=== PATIENT | male | born 1970 | race Caucasian/White ===

== ENCOUNTER 2016-07-29 14:23 | Emergency (ER) | payer OTHER ==
[~2016-07-29] VITALS: Ht 177.8 cm; Wt 106.0 kg
[~2016-07-29 14:23] MED LIST: ACCUPRIL20 MG OR; ACYCLOVIR400 MG PO; ACYCLOVIR800 MG OR; ADVIL200 MG PO; ALEVE220 MG PO; AMOX/K CLAV500 MG OR; ATENOLOL25 MG OR; ATENOLOL25 MG PO; CELEXA20 MG PO; CIPRO500 MG OR; COMBIVENT IN; DILAUDID4 MG OR; FLEXERIL10 MG PO; GLIPIZIDE ER5 MG OR; HYDROMORPHON2 MG OR; LEVAQUIN750 MG PO; LOPID600 MG PO; LORTAB 10 OR; LYRICA150 MG OR; MIRAPEX0.25 MG OR; NO HOME MEDS; NOVOLIN 701000 UNITS SC; NYSTATIN100000 M3 EX; PHENAZOPYRID200 MG PO; PREVACID30 M1 OR; QUINAPRIL10 MG PO; RESTORIL15 MG OR; SERTRALINE50 MG OR; TENORMIN25 MG PO; TRAZODONE150 MG OR; TYLENOL # 31 TAB OR; ULTRAM50 MG OR; ZOLPIDEM10 MG OR; ZOVIRAX800 MG PO
[2016-07-29] MEDS ORDERED: FUROSEMIDE40 MG PO (14:30)
[2016-07-29] MEDS ORDERED: LOSARTAN POT50 MG PO (14:31)
[2016-07-29] MEDS ORDERED: AMLODIPINE5 MG PO (15:31)
[2016-07-29 15:33] LABS: HEMATOCRIT 39.2 % (39.0-50.0); HEMOGLOBIN 12.7 g/dl (14.0-18.0); IMMATURE GRANULOCYTES 0.6 % (0.0-1.0); MEAN CELL VOLUME 87.5 fL CALC (80.0-100.0); MEAN CORPUSCULAR HGB 28.3 pG CALC (26.0-32.0); MEAN CORPUSCULAR HGB CONC 32.4 g/L CALC (32.0-36.0); NEUT# 15.54 thou/uL (1.82-7.42); RED BLOOD COUNT 4.48 mill/uL (4.70-6.10); RED CELL DISTRI WIDTH 15.7 % (11.5-15.5)
[2016-07-29 15:46] LABS: ALBUMIN 3.3 g/dL (3.2-5.0); ALKALINE PHOSPHATASE 175 u/l (38-126); ANION GAP 14 (6-22 (CALC)); BILIRUBIN, TOTAL 0.8 mg/dL (0.0-1.4); BUN 15 mg/dL (9-20); BUN/CREATININE RATIO 10 (12-20 (CALC)); CALCIUM 8.4 mg/dL (8.4-10.2); CARBON DIOXIDE 29 mmol/l (22-30); CHLORIDE 89 mmol/l (95-108); CREATININE 1.5 mg/dL (0.7-1.3); GFR 51 ML/MIN (>=60 (CALC)); GFR FOR AFR.AMER. > 60 ML/MIN (>=60 (CALC)); GLUCOSE 371 mg/dL (75-110); POTASSIUM 3.1 mmol/l (3.5-5.1); SGOT/AST 30 u/l (17-59); SGPT/ALT 25 u/l (21-72); SODIUM 129 mmol/l (137-146); TOTAL PROTEIN 7.2 g/dL (6.3-8.2)
[2016-07-29] MEDS ORDERED: AUGMENTIN500TAB PO (18:16)
[2016-07-29 18:26] VITALS: BP 122/75
[2016-07-30] MEDS ORDERED: BACTRIM DS1 TAB PO (21:31)
== END 2016-07-29 18:59 | disposition home or self-care (01) | DRG 603 ==
LOC: ED 14:23
PROVIDERS: Emergency Medicine
PROC: 0H91XZZ Drainage of Face Skin, External Approach (ICD-10-PCS; principal; 2016-07-29)
DX: L02.01 Cutaneous abscess of face (principal); B95.62 Methicillin resistant Staphylococcus aureus infection as the cause of diseases classified elsewhere

== ENCOUNTER 2016-07-30 20:50 | Emergency (ER) | payer OTHER ==
[~2016-07-30] VITALS: Ht 177.8 cm; Wt 106.0 kg
[~2016-07-30 20:50] MED LIST changes: +AMLODIPINE5 MG PO; +AUGMENTIN500TAB PO; +FUROSEMIDE40 MG PO; +LOSARTAN POT50 MG PO
[2016-07-30] MEDS ORDERED: BACTRIM DS1 TAB PO (21:31)
[2016-07-30 21:40] VITALS: BP 149/84
== END 2016-07-30 21:40 | disposition home or self-care (01) | DRG 951 ==
LOC: ED 20:50
DX: Z48.01 Encounter for change or removal of surgical wound dressing (principal); E11.40 Type 2 diabetes mellitus with diabetic neuropathy, unspecified; I10 Essential (primary) hypertension; J44.9 Chronic obstructive pulmonary disease, unspecified

== ENCOUNTER 2016-08-02 01:15 | Emergency (ER) | payer OTHER ==
[~2016-08-02] VITALS: Ht 177.8 cm; Wt 110.6 kg
[~2016-08-02 01:15] MED LIST changes: +BACTRIM DS1 TAB PO
[2016-08-02 02:18] VITALS: BP 145/103
== END 2016-08-02 02:26 | disposition home or self-care (01) | DRG 603 ==
LOC: ED 01:15
DX: L02.01 Cutaneous abscess of face (principal); E11.40 Type 2 diabetes mellitus with diabetic neuropathy, unspecified; I10 Essential (primary) hypertension; R10.9 Unspecified abdominal pain; G89.29 Other chronic pain; M54.9 Dorsalgia, unspecified; F32.9 Major depressive disorder, single episode, unspecified; J44.9 Chronic obstructive pulmonary disease, unspecified; B95.62 Methicillin resistant Staphylococcus aureus infection as the cause of diseases classified elsewhere

== ENCOUNTER 2017-06-05 15:58 | Emergency (ER) | payer OTHER ==
[~2017-06-05] VITALS: Ht 177.8 cm; Wt 118.0 kg
[2017-06-05 19:24] LABS: HEMATOCRIT 42.7 % (39.0-50.0); HEMOGLOBIN 14.5 g/dl (14.0-18.0); IMMATURE GRANULOCYTES 1.9 % (0.0-1.0); MEAN CORPUSCULAR HGB 31.3 pG CALC (26.0-32.0); NEUT# 12.63 thou/uL (1.82-7.42); RED BLOOD COUNT 4.64 mill/uL (4.70-6.10); RED CELL DISTRI WIDTH 14.1 % (11.5-15.5)
[2017-06-05 19:35] LABS: ALBUMIN 3.2 g/dL (3.2-5.0); BILIRUBIN, TOTAL 0.9 mg/dL (0.0-1.4); CREATININE 1.8 mg/dL (0.7-1.3); TOTAL PROTEIN 6.4 g/dL (6.3-8.2)
[2017-06-05 21:25] VITALS: BP 154/88
== END 2017-06-05 21:25 | disposition left against medical advice (07) | DRG 558 ==
LOC: ED 15:58
PROVIDERS: Emergency Medicine
DX: M65.842 Other synovitis and tenosynovitis, left hand (principal); R22.32 Localized swelling, mass and lump, left upper limb; R00.0 Tachycardia, unspecified; X58.XXXA Exposure to other specified factors, initial encounter; Y92.009 Unspecified place in unspecified non-institutional (private) residence as the place of occurrence of the external cause; Z91.19 Patient's noncompliance with other medical treatment and regimen

== ENCOUNTER 2019-04-22 | Inpatient (IN) | payer OTHER ==
[2019-04-19 16:26] LABS: HEMOGLOBIN 14.7 g/dl (14.0-18.0); IMMATURE GRANULOCYTES 0.3 % (0.0-5.0); MEAN CELL VOLUME 91.5 fL CALC (80.0-100.0); MEAN CORPUSCULAR HGB 29.2 pG CALC (26.0-32.0); NEUT# 7.13 thou/uL (1.82-7.42); RED BLOOD COUNT 5.03 mill/uL (4.70-6.10); RED CELL DISTRI WIDTH 16.4 % (11.5-15.5)
[2019-04-19 16:43] LABS: ALBUMIN 3.7 g/dL (3.2-5.0); BILIRUBIN, TOTAL 1.1 mg/dL (0.0-1.4); TOTAL PROTEIN 7.6 g/dL (6.3-8.2)
[2019-04-19 16:55] LABS: CREATININE 2.8 mg/dL (0.7-1.3); POTASSIUM 3.9 mmol/l (3.5-5.1)
[2019-04-19 19:25] VITALS: BP 174/108
[2019-04-19 20:45] VITALS: BP 140/92
[2019-04-19 23:40] VITALS: BP 164/103
[2019-04-20] VITALS (9 sets, daily range): BP systolic 119–163; BP diastolic 80–109
[2019-04-20 05:22] LABS: HEMATOCRIT 47.8 % (39.0-50.0); IMMATURE GRANULOCYTES 0.3 % (0.0-5.0); MEAN CELL VOLUME 92.6 fL CALC (80.0-100.0); MEAN CORPUSCULAR HGB 29.1 pG CALC (26.0-32.0); MEAN CORPUSCULAR HGB CONC 31.4 g/L CALC (32.0-36.0); NEUT# 5.02 thou/uL (1.82-7.42); RED BLOOD COUNT 5.16 mill/uL (4.70-6.10); RED CELL DISTRI WIDTH 16.3 % (11.5-15.5)
[2019-04-20 05:36] LABS: CREATININE 2.6 mg/dL (0.7-1.3)
[2019-04-20 21:19] LABS: URINE BLOOD DIPSTICK SMALL (NEGATIVE); URINE COLOR YELLOW; URINE GLUCOSE - DIPSTICK NEGATIVE (NEGATIVE); URINE KETONE NEGATIVE (NEGATIVE); URINE LEUK ESTERASE NEGATIVE (NEGATIVE); URINE NITRITE - DIPSTICK NEGATIVE (Negative); URINE PROTEIN - DIPSTICK >=300 mg/dL (NEG-TRACE); URINE SPECIFIC GRAVITY >=1.030; URINE UROBILINOGEN - DIPSTICK 0.2 E.U./dL (0.2)
[2019-04-20 21:24] LABS: URINE BILIRUBIN - DIPSTICK NEGATIVE (NEGATIVE)
[2019-04-20 21:26] LABS: URINE AMORPH SEDIMENT MANY hpf (NONE-FER); URINE RBC 0-2 RBC/hpf (0-5); URINE WBC 0-2 WBC/hpf (0-5)
[2019-04-21] VITALS (11 sets, daily range): BP systolic 119–165; BP diastolic 78–110
[2019-04-21 04:43] LABS: HEMATOCRIT 45.1 % (39.0-50.0); IMMATURE GRANULOCYTES 0.2 % (0.0-5.0); MEAN CELL VOLUME 93.6 fL CALC (80.0-100.0); NEUT# 6.31 thou/uL (1.82-7.42); RED BLOOD COUNT 4.82 mill/uL (4.70-6.10); RED CELL DISTRI WIDTH 16.4 % (11.5-15.5)
[2019-04-21 04:58] LABS: CREATININE 2.6 mg/dL (0.7-1.3); MAGNESIUM 1.7 mg/dL (1.6-2.3); POTASSIUM 3.9 mmol/l (3.5-5.1)
[2019-04-22] VITALS (15 sets, daily range): BP systolic 122–167; BP diastolic 82–115
[~2019-04-22] MED LIST changes: +AMLODIPINE BESY10 MG PO; -AMLODIPINE5 MG PO; +CLOTRIM/BET1 EX; +CONSTULOSE10 GM/15 M PO; +COZAAR25 MG PO; -FUROSEMIDE40 MG PO; +GABAPENTIN600 MG PO; +IPRATROPIU0.5 MG/3 M IN; +LASIX 80 MG TAB80 MG PO; -LOSARTAN POT50 MG PO; +ZOLPIDEM10 M1 PO
[2019-04-22 05:11] LABS: HEMATOCRIT 44.2 % (39.0-50.0); HEMOGLOBIN 13.7 g/dl (14.0-18.0); IMMATURE GRANULOCYTES 0.5 % (0.0-5.0); MEAN CELL VOLUME 93.4 fL CALC (80.0-100.0); NEUT# 10.77 thou/uL (1.82-7.42); RED BLOOD COUNT 4.73 mill/uL (4.70-6.10); RED CELL DISTRI WIDTH 16.3 % (11.5-15.5)
[2019-04-22 05:37] LABS: CREATININE 2.4 mg/dL (0.7-1.3); MAGNESIUM 1.6 mg/dL (1.6-2.3); POTASSIUM 3.7 mmol/l (3.5-5.1)
[2019-04-22 16:46] LABS: URINE BILIRUBIN - DIPSTICK NEGATIVE (NEGATIVE); URINE BLOOD DIPSTICK LARGE (NEGATIVE); URINE COLOR YELLOW; URINE GLUCOSE - DIPSTICK NEGATIVE (NEGATIVE); URINE KETONE NEGATIVE (NEGATIVE); URINE LEUK ESTERASE SMALL (Negative); URINE NITRITE - DIPSTICK POSITIVE (Negative); URINE PH 6.5 (4.5-8.0); URINE PROTEIN - DIPSTICK 100 mg/dL (NEG-TRACE); URINE SPECIFIC GRAVITY >=1.030
[2019-04-22 16:52] LABS: URINE CLARITY CLOUDY
[2019-04-22 17:03] LABS: URINE BACTERIA RARE hpf; URINE WBC 20-50 WBC/hpf (0-5)
[2019-04-22 19:05] LABS: COCAINE NEGATIVE (NEGATIVE); METHADONE NEGATIVE (NEGATIVE); TETRAHYDROCANNABIONOL NEGATIVE (NEGATIVE)
[2019-04-22 19:06] LABS: BARBITURATES NEGATIVE (NEGATIVE); OXCYCODONE NEGATIVE (NEGATIVE); TRICYLIC ANTIDEPRESSANTS NEGATIVE (NEGATIVE)
[2019-04-23] VITALS (17 sets, daily range): BP systolic 122–178; BP diastolic 75–99
[2019-04-23 05:16] LABS: HEMATOCRIT 41.4 % (39.0-50.0); MEAN CELL VOLUME 93.2 fL CALC (80.0-100.0); MEAN CORPUSCULAR HGB 29.3 pG CALC (26.0-32.0); MEAN CORPUSCULAR HGB CONC 31.4 g/L CALC (32.0-36.0); RED BLOOD COUNT 4.44 mill/uL (4.70-6.10); RED CELL DISTRI WIDTH 16.3 % (11.5-15.5)
[2019-04-23 05:35] LABS: CREATININE 2.5 mg/dL (0.7-1.3); MAGNESIUM 1.6 mg/dL (1.6-2.3); POTASSIUM 3.4 mmol/l (3.5-5.1)
[2019-04-24] VITALS (13 sets, daily range): BP systolic 99–198; BP diastolic 66–134
[2019-04-24 05:40] LABS: HEMATOCRIT 42.1 % (39.0-50.0); HEMOGLOBIN 12.9 g/dl (14.0-18.0); IMMATURE GRANULOCYTES 1.1 % (0.0-5.0); MEAN CORPUSCULAR HGB 28.8 pG CALC (26.0-32.0); MEAN CORPUSCULAR HGB CONC 30.6 g/L CALC (32.0-36.0); NEUT# 4.27 thou/uL (1.82-7.42); RED BLOOD COUNT 4.48 mill/uL (4.70-6.10); RED CELL DISTRI WIDTH 16.9 % (11.5-15.5)
[2019-04-24 05:45] LABS: ALBUMIN 3.5 g/dL (3.2-5.0); ALKALINE PHOSPHATASE 124 u/l (38-126); ANION GAP 16 (6-22 (CALC)); BILIRUBIN, TOTAL 1.2 mg/dL (0.0-1.4); BUN 50 mg/dL (9-20); BUN/CREATININE RATIO 19 (12-20 (CALC)); CARBON DIOXIDE 29 mmol/l (22-30); CHLORIDE 92 mmol/l (95-108); CREATININE 2.7 mg/dL (0.7-1.3); GFR 26 ML/MIN (>=60 (CALC)); GFR FOR AFR.AMER. 31 ML/MIN (>=60 (CALC)); POTASSIUM 3.5 mmol/l (3.5-5.1); SODIUM 133 mmol/l (137-146); TOTAL PROTEIN 6.8 g/dL (6.3-8.2)
[2019-04-24 05:49] LABS: SGOT/AST 178 u/l (17-59)
[2019-04-25] VITALS (9 sets, daily range): BP systolic 92–140; BP diastolic 52–84
[2019-04-25 05:23] LABS: HEMATOCRIT 43.5 % (39.0-50.0); HEMOGLOBIN 13.5 g/dl (14.0-18.0); MEAN CELL VOLUME 93.1 fL CALC (80.0-100.0); MEAN CORPUSCULAR HGB 28.9 pG CALC (26.0-32.0); RED BLOOD COUNT 4.67 mill/uL (4.70-6.10); RED CELL DISTRI WIDTH 16.4 % (11.5-15.5)
[2019-04-25 05:37] LABS: POTASSIUM 3.3 mmol/l (3.5-5.1)
== END 2019-04-25 20:25 | DRG 291 ==
PROVIDERS: Family Medicine; Internal Medicine; Nurse Practitioner Family; ADMIT Internal Medicine
PROC: 0T9B70Z Drainage of Bladder with Drainage Device, Via Natural or Artificial Opening (ICD-10-PCS; principal; 2019-04-20)
DX: I13.0 Hypertensive heart and chronic kidney disease with heart failure and stage 1 through stage 4 chronic kidney disease, or unspecified chronic kidney disease (principal); I50.23 Acute on chronic systolic (congestive) heart failure; J18.9 Pneumonia, unspecified organism; N17.9 Acute kidney failure, unspecified; N39.0 Urinary tract infection, site not specified; I16.0 Hypertensive urgency; E11.22 Type 2 diabetes mellitus with diabetic chronic kidney disease; N18.3 Chronic kidney disease, stage 3 (moderate); E11.65 Type 2 diabetes mellitus with hyperglycemia; I42.9 Cardiomyopathy, unspecified; J43.9 Emphysema, unspecified; I44.7 Left bundle-branch block, unspecified; K59.00 Constipation, unspecified; K21.9 Gastro-esophageal reflux disease without esophagitis; F17.200 Nicotine dependence, unspecified, uncomplicated; M54.9 Dorsalgia, unspecified; G89.29 Other chronic pain; K46.9 Unspecified abdominal hernia without obstruction or gangrene; B96.1 Klebsiella pneumoniae [K. pneumoniae] as the cause of diseases classified elsewhere; B96.20 Unspecified Escherichia coli [E. coli] as the cause of diseases classified elsewhere; Z91.11 Patient's noncompliance with dietary regimen
CPT/HCPCS: J1650; P9047

== ENCOUNTER 2019-12-27 11:12 | Observation (INO) | payer MEDICARE, OTHER ==
[~2019-12-27] VITALS: Ht 177.8 cm; Wt 120.0 kg
--- NOTE | 2019-12-27 11:12 | NUR ---
PT TO ROOM VIA EMS
--- NOTE | 2019-12-27 11:20 | NUR ---
PT ASSESSED. NO ACTIVE BLEEDING. PT REPORTS DIALYSIS CATHETAR BLEEDING TODAY AFTER DIALYSIS STARTED. PT AO X 3. SKIN PINK WARM AND DRY.
[2019-12-27] MEDS ORDERED: SEROQUEL25 MG PO (11:51)
[2019-12-27] MEDS ORDERED: ISOSORB DIN10 MG PO (11:53)
[2019-12-27] MEDS ORDERED: SPIRONOLACTONE25 MG PO (11:54)
[2019-12-27] MEDS ORDERED: VIT A & D PO (11:54)
[2019-12-27] MEDS ORDERED: LEVOTHYROXIN75 MCG PO (11:55)
[2019-12-27] MEDS ORDERED: PANTOPRAZOLE SO40 M1 PO (11:56)
[2019-12-27] MEDS ORDERED: QUETIAPINE FUMA25 MG PO (11:57)
[2019-12-27] MEDS ORDERED: LORATADINE10 M1 PO (11:57)
[2019-12-27] MEDS ORDERED: LEVEMIR100 UNIT/M SC (11:59)
[2019-12-27 12:09] LABS: HEMOGLOBIN 11.7 g/dl (14.0-18.0); IMMATURE GRANULOCYTES 0.6 % (0.0-5.0); MEAN CELL VOLUME 97.1 fL CALC (80.0-100.0); MEAN CORPUSCULAR HGB 31.3 pG CALC (26.0-32.0); MEAN CORPUSCULAR HGB CONC 32.2 g/dL CAL (32.0-36.0); NEUT# 7.36 thou/uL (1.82-7.42); RED BLOOD COUNT 3.74 mill/uL (4.70-6.10); RED CELL DISTRI WIDTH 13.8 % (11.5-15.5)
[2019-12-27 12:10] LABS: HEMATOCRIT 36.3 % (39.0-50.0)
--- NOTE | 2019-12-27 12:20 | NUR ---
PT RESTING ON STRETCHER, USING PHONE. NO COMPLAINTS AT THIS TIME
[2019-12-27 12:42] LABS: CREATININE 9.3 mg/dL (0.7-1.3); POTASSIUM 4.9 mmol/l (3.5-5.1)
--- NOTE | 2019-12-27 13:20 | NUR ---
PT AWAITING ADMISSION
[2019-12-27 13:27] LABS: INTERNATIONAL NORMALIZED RATIO 1.4 RATIO (0.7-1.3); PROTHROMBIN TIME 13.5 SECONDS (9.0-12.5)
--- NOTE | 2019-12-27 14:30 | NUR ---
PT TRANSPORTED VIA WHEELCHAIR, TELEMETRY IN PLACE TO [facility]
--- NOTE | 2019-12-27 14:30 | NUR ---
REPORT GIVEN TO ADILENE BOWEN
[2019-12-27 14:50] VITALS: BP 153/94
--- NOTE | 2019-12-27 15:30 | NUR ---
PT ARRIVES TO ROOM 270 FROM ER VIA WHEELCHAIR ACCOMPANIED BY NURSE RAYMOND. PT IS ALERT AND ORIENTED X 3, AMBULATORY. LUNGS CLEAR, RA. RIGHT CHEST CATHETER SITE COVERED BY TAPE, PT EXPLAINS THAT IT WAS PULLED OUT 6 CM BY MISTAKE. PT AWARE OF PENDING SURGERY LATER TODAY, MAINTAINS NPO STATUS.
[2019-12-27 19:10] VITALS: BP 152/95
--- NOTE | 2019-12-27 19:17 | NUR ---
ASSESSMENT COMPLETED. PT. C/O RIGHT KNEE PAIN AND REQUESTS PRN TYLENOL, HE DOES NOT WANT TRAMADOL; MEDICATED WITH TYLENOL PER ORDER; WILL REASSESS. DENIES ANY PAIN TO NEWLY PLACED TESSIO CATHETER TO RIGHT CHEST; INTACT WITH DRESSING [facility]. BANDAGE NOTED TO RIGHT SIDE OF NECK WHERE PREVIOUS TESSIO CATHETER WAS REMOVED; SMALL CIRCULAR SPOT NOTED WITH BLOOD AND IS OUTLINED TO MONITOR. UPDATED ON POC. VSS. ENCOURAGED TO CALL FOR ANY NEEDS. HOB ELEVATED PER ORDER. CALL LIGHT IS IN REACH. WILL CONTIUNE TO [facility].
[2019-12-27 23:12] VITALS: BP 146/85
--- NOTE | 2019-12-27 23:14 | NUR ---
VSS. NO DISTRESS NOTED. PT. REQUESTED ALLERGY MEDICATION AT NIGHT HE TAKES IT AT HOME; MEDICATED AT THIS TIME PER EMAR. PO FLUIDS OFFERED.
--- NOTE | 2019-12-28 03:05 | NUR ---
RESTING IN BED WITH NO DISTRESS NOTED; EYES CLOSED; CALL LIGHT IS IN REACH.
[2019-12-28 03:34] VITALS: BP 152/88
[2019-12-28 07:50] VITALS: BP 147/84
--- NOTE | 2019-12-28 07:50 | NUR ---
PT SLEEPING IN BED. AWAKENED TO COMPLETE ASSESSMENT. A&O X3. NO DISTRESS NOTED. PT DENIES ANY PAIN AT THIS TIME. DRESSING CDI. BILATERAL SCDS IN PLACE. NO OTHER NEEDS AT THIS TIME. ASSESSMENT COMPLETED DISCUSSED POC. CALL LIGHT IN REACH. CONTINUE TO MONITOR.
[2019-12-28 08:39] LABS: HEMATOCRIT 35.3 % (39.0-50.0); HEMOGLOBIN 11.4 g/dl (14.0-18.0); MEAN CORPUSCULAR HGB 31.3 pG CALC (26.0-32.0); MEAN CORPUSCULAR HGB CONC 32.3 g/dL CAL (32.0-36.0); RED BLOOD COUNT 3.64 mill/uL (4.70-6.10); RED CELL DISTRI WIDTH 13.7 % (11.5-15.5)
[2019-12-28 08:49] LABS: POTASSIUM 4.6 mmol/l (3.5-5.1)
[2019-12-28 08:50] LABS: CREATININE 9.6 mg/dL (0.7-1.3)
[2019-12-28 09:20] VITALS: BP 147/84
--- NOTE | 2019-12-28 09:55 | NUR ---
IV SITE REMOVED WITH CATHETER INTACT.
--- NOTE | 2019-12-28 10:31 | NUR ---
Discharge instructions given. Patient verbalizes understanding of same. Discharged in stable condition via Wheelchair to home accompanied by staff. All belongings sent with pt.
== END 2019-12-28 10:31 | disposition home or self-care (01) ==
LOC: ED 11:12 → ED-I 12:46 → ED 13:02 → MS2 13:03
PROVIDERS: Family Medicine; Nurse Practitioner; ADMIT Internal Medicine; ATTEND Internal Medicine
PROC: 0J2TXYZ Change Other Device in Trunk Subcutaneous Tissue and Fascia, External Approach (ICD-10-PCS; principal; 2019-12-27)
DX: T82.42XA Displacement of vascular dialysis catheter, initial encounter (principal); I13.2 Hypertensive heart and chronic kidney disease with heart failure and with stage 5 chronic kidney disease, or end stage renal disease; I50.23 Acute on chronic systolic (congestive) heart failure; E11.22 Type 2 diabetes mellitus with diabetic chronic kidney disease; N18.6 End stage renal disease; Z99.2 Dependence on renal dialysis; D63.8 Anemia in other chronic diseases classified elsewhere; J43.9 Emphysema, unspecified; I25.10 Atherosclerotic heart disease of native coronary artery without angina pectoris; E21.3 Hyperparathyroidism, unspecified; K21.9 Gastro-esophageal reflux disease without esophagitis; F17.200 Nicotine dependence, unspecified, uncomplicated; Y83.8 Other surgical procedures as the cause of abnormal reaction of the patient, or of later complication, without mention of misadventure at the time of the procedure; Z95.0 Presence of cardiac pacemaker; Z79.4 Long term (current) use of insulin; Z11.59 Encounter for screening for other viral diseases